=== PATIENT | female | born 1985 | race Caucasian/White ===

== ENCOUNTER 2016-08-22 08:10 | Day surgery (SDC) | payer BC ==
[~2016-08-22 08:10] MED LIST: Lactated Ringers 1,000 ML IV SCH; Lidocaine 2% 5 ML SDV ONE; Midazolam 1 MG/ML 2 ML SDV ONE; Propofol 200 MG/20 ML SDV ONE; fentaNYL 100 MCG/2 ML SDV ONE
--- NOTE | 2016-08-22 08:32 | PCM.PREANE ---
Preanesthetic Assessment - Anesthesia/Transfusion/Family Hx Anesthesia History: Prior Anesthesia Without Reaction Family History of Anesthesia Reaction: No Transfusion History: No Prior Transfusion(s) - Review of Systems General: No Symptoms Pulmonary: No Symptoms Cardiovascular: No Symptoms Gastrointestinal: No symptoms Neurological: No Symptoms Other: Reports: None - Physical Assessment NPO Status Date: 08/21/16 Height: 1.83 m Weight: 141.974 kg ASA Class: 2 Mental Status: Alert & Oriented x3 Airway Class: Mallampati = 1 Dentition: Reports: Normal Dentition ROM/Head Extension: Full Lungs: Clear to auscultation, Normal respiratory effort Cardiovascular: Regular Rate, Regular Rhythm - Allergies Allergies/Adverse Reactions: Allergies Allergy/AdvReac Type Severity Reaction Status Date / Time No Known Allergies Allergy Verified 11/16/15 23:30 - Anesthesia Plan Pre-Op Medication Ordered: None - Acknowledgements Anesthesia Type Planned: General Anesthesia Pt an Appropriate Candidate for the Planned Anesthesia: Yes Alternatives and Risks of Anesthesia Discussed w Pt/Guardian: Yes Pt/Guardian Understands and Agrees with Anesthesia Plan: Yes PreAnesthesia Questionnaire HEENT History: Reports: None Cardiovascular History: Reports: Hypertension Respiratory History: Reports: None Gastrointestinal History: Reports: GERD Genitourinary History: Reports: None 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 Musculoskeletal History: Reports: Back Pain, Chronic Neurological History: Reports: None Psychiatric History: Reports: Anxiety, Depression Endocrine/Metabolic History: Reports: Hypothyroidism, Obesity/BMI 30+ Hematologic History: Reports: None Immunologic History: Reports: None Oncologic (Cancer) History: Reports: None Dermatologic History: Reports: None - Infectious Disease History Infectious Disease History: Reports: Chicken Pox - Past Surgical History Head Surgeries/Procedures: Reports: None HEENT Surgical History: Reports: None GI Surgical History: Reports: Colonoscopy Female Surgical History: Reports: None Endocrine Surgical History: Reports: Thyroidectomy Other Endocrine Surgeries/Procedures: partial thyroidectomy 2010, total thyroidectomy 2017 Oncologic Surgical History: Reports: None - SUBSTANCE USE Smoking Status *Q: Never Smoker Recreational Drug Use History: No - HOME MEDS Home Medications: Home Meds Acetaminophen [Tylenol] 2 tab PO ASDIRECTED PRN 08/21/16 [History] Clindamycin HCl 300 mg PO TID 08/21/16 [History] Escitalopram [Lexapro] 20 mg PO DAILY 08/21/16 [History] Levothyroxine Sodium [Synthroid] 150 mcg PO DAILY 08/21/16 [History] Nitrofurantoin Macrocrystal [Macrodantin] 100 mg PO BID 08/21/16 [History] PNV95/Ferrous Fumarate/FA [ Vitamin Tablet] 1 tab PO DAILY 08/21/16 [ History] - CURRENT (IN HOUSE) MEDS Current Meds: Current Medications Lactated Ringer's (Ringers, Lactated) 1,000 mls @ 125 mls/hr IV ASDIRECTED SHIREEN Discontinued Medications Fentanyl (Sublimaze) Confirm Administered Dose 100 mcg .ROUTE .STK-MED ONE Stop: 08/22/16 07:38 Lidocaine (Xylocaine-Mpf 2%) Confirm Administered Dose 5 ml .ROUTE .STK-MED ONE Stop: 08/22/16 07:38 Midazolam HCl (Versed 1 Mg/Ml) Confirm Administered Dose 2 mg .ROUTE .STK-MED ONE Stop: 08/22/16 07:38 Propofol (Diprivan 20 Ml) Confirm Administered Dose 200 mg .ROUTE .STK-MED ONE Stop: 08/22/16 07:38
[2016-08-22] MEDS ORDERED: Ketorolac 30 MG/ML SDV ONE (10:22)
[2016-08-22] MEDS ORDERED: Ondansetron 4 MG/2 ML SDV ONE (10:22)
[2016-08-22] MEDS ORDERED: fentaNYL 100 MCG/2 ML SDV ONE (10:22)
--- NOTE | 2016-08-22 10:32 | PCM.OPNOTE ---
- General Post-Op/Procedure Note Date of Surgery/Procedure: 08/22/16 Operative Procedure(s): Suction D&C Findings: Products of conception Pre Op Diagnosis: Incomplete SAB, cannot rule out ectopic Post-Op Diagnosis: Same Anesthesia Technique: General LMA Primary Surgeon: Kaykay Loya Pathology: products of conception Fluid Replacement, Intraop: 1,000 EBL in mLs: 30 Condition: Good Free Text/Narrative:: Dictation [id number]
[2016-08-22] MEDS ORDERED: fentaNYL 100 MCG/2 ML SDV IVPUSH PRN (10:41)
--- NOTE | 2016-08-22 10:50 | PCM.POSTAN ---
POST ANESTHESIA ASSESSMENT - MENTAL STATUS Mental Status: alert, oriented - RESPIRATORY Respiratory Status: respiratory rate WNL, airway patent, O2 saturation stable - CARDIOVASCULAR CV Status: pulse rate WNL, blood pressure stable - GASTROINTESTINAL GI Status: no symptoms - POST OP HYDRATION Hydration Status: adequate & stable
[2016-08-22 13:17] VITALS: BP 122/73
--- NOTE | 2016-08-23 06:02 | OR ---
SURGEON: Kaykay Loya M.D. DATE OF PROCEDURE: 08/22/2016 PREOPERATIVE DIAGNOSIS: Incomplete spontaneous , cannot rule out ectopic . POSTOPERATIVE DIAGNOSIS: Incomplete spontaneous , cannot rule out ectopic . PROCEDURE: Suction dilation and curettage. ESTIMATED BLOOD LOSS: 30 mL. ANESTHESIA: General LMA. FLUIDS: 1000 mL crystalloid. FINDINGS: Products of conception. DISPOSITION: The patient to PACU, stable. PROCEDURE DETAILS: Tatianna is a 30-year-old female, who recently has been followed for bleeding in early . Her quantitative hCG is stagnant in the 121-124 range is not appropriately rising on ultrasound. There was some free fluid in the pelvis and ectopic gestation cannot be ruled out given the stagnant hCGs. Options at this point have been discussed with her, one is conservative observation with continued serial hCG levels versus proceeding with a D and C, one to therapeutically evacuate the uterine cavity and to evaluate for chorionic villi to determine whether or not the conception is intrauterine or ectopic. After discussion with her partner, the patient has opted to proceed with a D and C. Risks of procedure have been discussed with her. The patient was taken to the operating room, where she underwent general LMA, was placed in modified dorsal lithotomy position, prepped and draped in the usual sterile fashion. SCDs to lower extremities. Bladder was drained. Time- out was performed. A speculum was introduced into the vagina. Anterior lip of the cervix was grasped with an Allis clamp. The cervix was gently dilated to 8 mm. It dilated very easily and was already dilated to 6 mm on its own. The uterus sounded to approximately 8 cm. Using an 8 mm curved curette, this was introduced into the uterine cavity. With suction applied, the uterine cavity was cleared of products of conception. This will now be sent to pathology fresh to evaluate for chorionic villi. Gentle sharp curettage was also performed prior to sending the specimen. Once the uterus was felt to be adequately evacuated, all instruments were removed from the uterine cavity. Cervix has been inspected and found to be hemostatic. Sponge and instrument count was correct. The patient will go to PACU in stable condition. Specimen to pathology with chorionic villi. If none is present, we will proceed with methotrexate dosing. If there is chorionic villi, it confirms intrauterine gestation and no further treatment is indicated. BETO / GARY /[id number]
== END 2016-08-22 13:17 | disposition home or self-care (01) ==
LOC: MW.SDS 08:10
PROVIDERS: ATTEND Obstetrics & Gynecology
DX: O03.4 Incomplete spontaneous abortion without complication (principal); K21.9 Gastro-esophageal reflux disease without esophagitis; F32.9 Major depressive disorder, single episode, unspecified; F41.9 Anxiety disorder, unspecified; E89.0 Postprocedural hypothyroidism; Z98.890 Other specified postprocedural states
CPT/HCPCS: 59812; 88305; 88331; 88332; J1885; J2250; J2405; J3010; J7120; J9260; 01965; J2704